=== PATIENT | female | born 1985 ===

== ENCOUNTER 2018-02-13 08:15 | Inpatient (IN) | payer OTHER ==
[~2018-02-13] VITALS: Ht 165.1 cm; Wt 77.1 kg
[2018-02-26] MEDS ORDERED: PRENATAL 19 TA1 EACH PO (07:39)
[2018-02-28] MEDS ORDERED: IBUPROFEN400 MG PO (11:31)
[2018-02-28] MEDS ORDERED: COLACE100 MG PO (11:41)
[2018-02-28] MEDS ORDERED: Dermoplast SPRAY TOP (11:41)
[2018-02-28] MEDS ORDERED: FERROUS SULFAT325 M1 PO (11:41)
[2018-02-28] MEDS ORDERED: HYDROCORTISO453.6 G1 RECTAL (11:41)
== END 2018-02-28 12:22 | DRG 807 ==
LOC: LDR 02-26 06:08 → OB/GYN 02-26 11:12
PROC: 10E0XZZ Delivery of Products of Conception, External Approach (ICD-10-PCS; principal; 2018-02-26)
PROC: 4A1HXCZ Monitoring of Products of Conception, Cardiac Rate, External Approach (ICD-10-PCS; 2018-02-26)
PROC: 0HQ9XZZ Repair Perineum Skin, External Approach (ICD-10-PCS; 2018-02-26)
DX: O70.1 Second degree perineal laceration during delivery (principal); Z37.0 Single live birth; Z3A.39 39 weeks gestation of pregnancy

== ENCOUNTER → 2020-05-08 | Outpatient (CLI) | payer OTHER ==
[~2020-05-08] MED LIST: COLACE100 MG PO; Dermoplast SPRAY TOP; FERROUS SULFAT325 M1 PO; HYDROCORTISO453.6 G1 RECTAL; IBUPROFEN400 MG PO; PRENATAL 19 TA1 EACH PO
== END | disposition home or self-care (01) ==
LOC: PRENATAL 09:02
PROVIDERS: ATTEND Obstetrics & Gynecology Maternal & Fetal Medicine
DX: Z36.89 Encounter for other specified antenatal screening (principal); O36.80X1 Pregnancy with inconclusive fetal viability, fetus 1; Z3A.12 12 weeks gestation of pregnancy

== ENCOUNTER → 2020-07-14 | Outpatient (CLI) | payer OTHER | END | disposition home or self-care (01) | LOC: PRENATAL 13:00 | PROVIDERS: ATTEND Obstetrics & Gynecology Maternal & Fetal Medicine | DX: O35.0XX1 Maternal care for (suspected) central nervous system malformation in fetus, fetus 1 (principal); O35.3XX1 Maternal care for (suspected) damage to fetus from viral disease in mother, fetus 1; O98.512 Other viral diseases complicating pregnancy, second trimester; Z36.89 Encounter for other specified antenatal screening; Z3A.20 20 weeks gestation of pregnancy ==

== ENCOUNTER → 2020-09-15 | Outpatient (CLI) | payer OTHER ==
[~2020-09-15] MED LIST changes: +PRENATAL + DHA1 EAC1
== END | disposition home or self-care (01) ==
LOC: PRENATAL 14:16
PROVIDERS: ATTEND Obstetrics & Gynecology Maternal & Fetal Medicine
DX: O26.843 Uterine size-date discrepancy, third trimester (principal); O36.8131 Decreased fetal movements, third trimester, fetus 1; Z36.89 Encounter for other specified antenatal screening; Z3A.29 29 weeks gestation of pregnancy

== ENCOUNTER 2020-11-09 12:15 | Inpatient (IN) | payer OTHER ==
[~2020-11-09] VITALS: Ht 48.3 cm; Wt 3034.0 kg
[~2020-11-09 12:15] MED LIST changes: -PRENATAL + DHA1 EAC1
[2020-11-19] MEDS ORDERED: PRENATAL + DHA1 EAC1 (20:08)
== END 2020-11-21 11:08 | disposition home or self-care (01) | DRG 807 ==
LOC: LDR 11-19 19:18 → OB/GYN 11-19 19:18 → SURH 11-25 12:15
PROVIDERS: ADMIT Specialist; ATTEND Specialist
PROC: 10E0XZZ Delivery of Products of Conception, External Approach (ICD-10-PCS; principal; 2020-11-19)
PROC: 3E033VJ Introduction of Other Hormone into Peripheral Vein, Percutaneous Approach (ICD-10-PCS; 2020-11-19)
PROC: 4A1HXFZ Monitoring of Products of Conception, Cardiac Rhythm, External Approach (ICD-10-PCS; 2020-11-19)
DX: O70.1 Second degree perineal laceration during delivery (principal); Z37.0 Single live birth; O99.824 Streptococcus B carrier state complicating childbirth; O90.81 Anemia of the puerperium; D64.9 Anemia, unspecified; Z3A.00 Weeks of gestation of pregnancy not specified; Z20.822 Contact with and (suspected) exposure to COVID-19